=== PATIENT | female | born 1985 | race African-American/Black ===

== ENCOUNTER 2018-02-01 08:13 | Emergency (ER) | payer SELFPAY ==
[2018-02-01] MEDS ORDERED: Ondansetron ODT 4 MG TAB ONE (09:35)
== END 2018-02-01 10:16 | disposition home or self-care (01) ==
LOC: ERS 08:13
DX: K02.9 Dental caries, unspecified (principal); F41.9 Anxiety disorder, unspecified
CPT/HCPCS: 99282; Q0162

== ENCOUNTER 2018-11-14 12:51 | Emergency (ER) | payer SELFPAY | END 2018-11-14 14:30 | disposition home or self-care (01) | LOC: ERS 12:51 | DX: J30.9 Allergic rhinitis, unspecified (principal); F41.9 Anxiety disorder, unspecified | CPT/HCPCS: 99283 ==

== ENCOUNTER 2023-07-12 05:21 | Emergency (ER) | payer SELFPAY ==
[2023-07-12] MEDS ORDERED: Ondansetron ODT 4 MG TAB ONE (05:41)
== END 2023-07-12 05:45 | disposition home or self-care (01) ==
LOC: ERS 05:21
DX: J06.9 Acute upper respiratory infection, unspecified (principal); Z20.822 Contact with and (suspected) exposure to COVID-19
CPT/HCPCS: 87635; 99283; Q0162